=== PATIENT | female | born 1975 | race Caucasian/White ===

== ENCOUNTER 2018-05-31 07:13 | Emergency (ER) | payer BC ==
[2018-05-31] MEDS: DEXAMETHASONE 10 MG/ML 1 ML INJ PO (07:50)
[2018-05-31] MEDS: IBUPROFEN 800 MG TAB PO (07:51)
== END 2018-05-31 08:30 | disposition home or self-care (01) ==
LOC: FTE 07:13
DX: M54.9 Dorsalgia, unspecified (principal); Z79.82 Long term (current) use of aspirin
CPT/HCPCS: 99283; J1100